=== PATIENT | female | born 1990 | race Caucasian/White ===

== ENCOUNTER 2020-01-20 15:20 | Emergency (ER) | payer BC, SELFPAY ==
[2020-01-20 15:21] VITALS: BP 154/100; PULSE 116; RESP 14; TEMP 36.7; O2SAT 100; BMI 40.8
--- NOTE | 2020-01-20 15:24 | NURSING ---
NO OLD EKGS
--- NOTE | 2020-01-20 16:16 | EKG12_ITS ---
Test Reason : PALPITATIONS Blood Pressure : / mmHG Vent. Rate : 105 BPM Atrial Rate : 105 BPM P-R Int : 152 ms QRS Dur : 086 ms QT Int : 346 ms P-R-T Axes : 033 007 006 degrees QTc Int : 457 ms Sinus tachycardia Otherwise normal ECG Confirmed by KALYANI TORRES, CAROLE ([id number]), book editor YIMI NGUYEN ([id number] on 01/25/2020 2:15:25 PM Referred By: Confirmed By:CAROLE AUGUSTE MD
--- NOTE | 2020-01-20 16:17 | ED.VISSUMM ---
- ER Visit Summary Date of Service: 01/20/20 Chief Complaint: Palpitations History of Present Illness: The patient is a 29 F who presents with palpitations that have been intermittent over the last 5 days. Patient states she feels like her heart is racing. Patient states his last approximately 10 to 15 minutes. Patient states nothing makes it worse or nothing makes it better. Patient denies any chest pain. Patient denies any shortness of breath or cough. Patient denies any fevers or chills. Patient denies any nausea or vomiting. Patient denies any diaphoresis. Patient denies any recent travel or recent surgery. Physical Examination: Vital signs are stable except for mild tachycardia of 116. Patient is afebrile. Patient is in no acute distress. Oral mucosa is pink and moist. Neck is supple. Trachea is midline. There is no JVD. Heart was regular rate and rhythm. Lungs are clear and equal bilaterally. Abdomen is soft. Bowel sounds are normal. There is no tenderness. Cranial nerves II through XII are intact. There are no focal motor or sensory deficits noted. Extremities are intact. There is no calf tenderness or edema. Test Results: EKG showed sinus tachycardia with a rate of 105. There are no acute ST or T wave changes. There are no prior EKGs available for comparison. CBC shows a leukocytosis of 15.9. Comprehensive metabolic profile was within normal limits. Troponin was normal. Serum hCG was negative. Chest x-ray does not show any acute cardiopulmonary process. Emergency Department Course and Treatment: Patient was given IV fluids here. Patient's heart rate improved. Patient was feeling better on reevaluation. Patient was instructed to follow-up with her primary care physician tomorrow as scheduled. Patient understood and was agreeable with the plan. All questions were answered. Disposition: Discharge home Impression: Palpitations This note was generated with [employer] dictation software. It may contain incorrect words, spelling, and punctuation that were not noted in review of the chart prior to signing ED Disposition - Plan for ED Patient: Disposition: Home or Assisted Living Diagnosis: Palpitations Instructions: ED Palpitations Referrals: Johnnie Serna DO [Primary Care Provider] - Keep Josee appointment
[2020-01-20 16:27] LABS: Absolute Lymphocyte Count 4.65 X10^3/uL (0.83-4.51); Absolute Neutrophil Count 10.1 X10^3/uL (2.0-7.7); Basophil# 0.08 X10^3/uL; Basophil% 0.5 % (0-1); Eosinophil# 0.27 X10^3/uL; Eosinophils% 1.7 % (0-5); Hematocrit 41.2 % (37-47); Hemoglobin 12.6 g/dL (12.0-15.0); Lymphocyte # 4.65 X10^3/ul (4.0); Lymphocyte % 29.3 % (19-41); Mean Corp Hgb Conc 30.6 g/dL (32-36); Mean Corpuscular Hgb 22.2 pg (27.0-32.0); Mean Corpuscular Volume 72.7 fL (81-99); Mean Platelet Vol. 10.4 fl (6.2-12.0); Monocyte# 0.69 X10^3/uL; Monocyte% 4.3 % (0-10); NRBC Flagged by Analyzer 0 % (0-5); Neutrophil # 10.07 X10^3/uL (2.7-7.7); Neutrophil % 63.4 % (47-70); Platelet Count 443 K/mm3 (150-450); RBC Distribution Width CV 15.9 % (11.6-14.6); RBC Distribution Width SD 39.7 fl (35.1-43.9); Red Blood Count 5.67 M/mm3 (4.2-5.4); White Blood Count 15.9 K/mm3 (4.4-11.0)
[2020-01-20 16:35] LABS: Internal QC Validated? YES +Cl - CLEAR BKGD; Pregnancy, Serum, hCG Quali. NEGATIVE Negative
--- NOTE | 2020-01-20 16:35 | RAD_ITS ---
STUDY: X-RAY CHEST REASON FOR EXAM: Female, 29 years old. Palpitations TECHNIQUE: Single AP portable view of the chest. COMPARISON: None. FINDINGS: The lungs are clear and expanded. There is no demonstrated pleural abnormality. Normal size heart. Normal mediastinum and dio. Normal visualized pulmonary arteries. Normal visualized aortic arch and descending thoracic aorta. Normal visualized thoracic spine. Normal visualized ribs, clavicles, and shoulders. There is no demonstrated abnormality of the visualized soft tissue structures of the upper abdomen. RAD/Chest 1 View (Portable) IMPRESSION: Normal x-ray examination of the chest. Electronically Signed: Abhinav Weinstein MD at 16:55 EDT , Service support ,
[2020-01-20 16:42] LABS: ALB/GLOB Ratio 0.7 RATIO (0.9-2.4); AST(SGOT) 14 U/L (15-37); Alanine Aminotransfer ALT/SGPT 21 U/L (13-56); Albumin, Serum 3.4 g/dL (3.2-5.0); Alkaline Phosphatase 113 U/L (45-117); Anion Gap 7 (5-15); BUN 12 mg/dL (7-18); BUN/Creat Ratio 14.4 RATIO (10-20); Calcium,Total 9.4 mg/dL (8.5-10.1); Chloride 106 mmol/L (98-107); Creatinine, Serum 0.83 mg/dL (0.55-1.02); EST Glomerular Filtration Rate 87 mL/min (>60); Est Glom Filt Rate - Afr Amer 105 mL/min (>60); Globulin 4.7 g/dL (2.2-4.2); Glucose 99 mg/dL (74-106); Potassium 3.8 mmol/L (3.5-5.1); Protein, Total 8.1 g/dL (6.4-8.2); Sodium Level 139 mmol/L (136-145)
[2020-01-20] MEDS: 0.9% Normal Saline 1,000 ML 1000 ML IV (16:43)
[2020-01-20 18:17] VITALS: BP 142/102; PULSE 95; RESP 18; O2SAT 99
[2020-01-20 18:34] VITALS: BP 159/97; PULSE 102; RESP 18; O2SAT 99
== END 2020-01-20 18:35 | disposition home or self-care (01) ==
PROVIDERS: Emergency Provider Emergency Medicine; PCP Family Medicine
DX: R00.2 Palpitations (principal)
CPT/HCPCS: 71045; 80053; 84484; 84703; 85025; 93005; 96360; 99284; J7030; A4216

== ENCOUNTER 2021-10-06 15:11 | Outpatient (CLI) | payer BC, SELFPAY | END 2021-10-06 23:59 | disposition short-term general hospital (02) | LOC: LABSPEC 15:13 | PROVIDERS: Visit Provider Physician Assistant Surgical | DX: Z20.822 Contact with and (suspected) exposure to COVID-19 (principal) | CPT/HCPCS: 87635; U0003; U0005 ==

== ENCOUNTER 2021-10-24 15:04 | Outpatient (CLI) | payer BC, SELFPAY | END 2021-10-24 23:59 | disposition short-term general hospital (02) | LOC: LABSPEC 15:05 | PROVIDERS: Visit Provider Physician Assistant Surgical | DX: R09.81 Nasal congestion (principal) | CPT/HCPCS: 87635; U0003; U0005 ==